=== PATIENT | male | born 2000 | race Caucasian/White ===

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

== ENCOUNTER → 2022-01-30 08:05 | Outpatient (POV) | payer BC, SELFPAY | PROVIDERS: Visit Provider Dermatology | DX: Z00.00 Encounter for general adult medical examination without abnormal findings (principal) ==

== ENCOUNTER 2022-09-30 22:13 | Emergency (ER) | payer BC, SELFPAY ==
[2022-09-30 22:15] VITALS: BP 168/83; PULSE 70; RESP 16; TEMP 36.5; O2SAT 100; BMI 22.2
--- NOTE | 2022-09-30 22:27 | CT_ITS ---
PROCEDURE INFORMATION: Exam: CT Maxillofacial Without Contrast Exam date and time: 09/30/2022 10:56 PM Age: 21 years old Clinical indication: Face pain; Additional info: Laceration TECHNIQUE: Imaging protocol: Computed tomography of the face without contrast. Radiation optimization: All CT scans at this facility use at least one of these dose optimization techniques: automated exposure control; mA and/or kV adjustment per patient size (includes targeted exams where dose is matched to clinical indication); or iterative reconstruction. REPORTING DATA: Count of CT and Cardiac NM exams in prior 12 months: This patient has received 0 known CTs and 0 known cardiac nuclear medicine studies in the 12 months prior to the current study. COMPARISON: No relevant prior studies available. FINDINGS: Orbital cavities: Orbits are normal. Globes are unremarkable. Bones/joints: Subtle deformity of the anterior inferior left nasal bone, mildly fragmented on axial image 32, possibly but not convincing of acute fracture. Paranasal sinuses: Benign mucous retention cyst in the paranasal sinuses. Mild mucosal thickening of the paranasal sinuses. Soft tissues: Left preorbital soft tissue contusion. Suspect laceration of the anterior soft tissue aspect of the nasal septum to the right of midline. IMPRESSION: 1. Left preorbital soft tissue contusion. 2. Suspect laceration of the anterior soft tissue aspect of the nasal septum to the right of midline. Recommend clinical correlation. 3. Subtle deformity of the anterior inferior left nasal bone, mildly fragmented on axial image 32, possibly but not convincing of acute fracture.
--- NOTE | 2022-09-30 22:49 | HMH.EDWNDL ---
Discharge Plan Disposition Patient Disposition: Home, Self-Care Chief Complaint: Wound/Laceration Prescriptions Prescriptions: No Action ondansetron HCl 4 MG tablet 4 mg PO TID Qty: 15 0RF Referrals Follow up/Referrals: Ilya Hayward MD [Primary Care Provider] - See instructions Clinical Impressions Clinical Impression: Blunt trauma of face, Closed fracture nasal bone, Facial laceration Instructions Patient Instructions: DI for Laceration Repair Discharge ED Provider: Damion (ED),Sy Jaime Wound/Laceration HPI General Chief Complaint: Wound/Laceration Stated Complaint: AO03/16@2130 fell lac to right eye and nose Time Seen by Provider: 09/30/22 22:30 Mode of Arrival: Ambulatory Source of Information: Patient, Parent(s) and Medical Record Limitations: No Limitations Description of Symptoms (Recalled from ER Triage Doc. by RN): Pt arrives to ED with a laceration above left eye and abrasion to nose after falling into a metal bernardo r/t being tripped by his dog per pt report. History of Present Illness HPI narrative: trip type injury and fall with facial trauma and 4 cm lt eyebrow lac - no loc and no other injury Onset (ago): hour(s) Location: face Place: home Patient tetanus UTD: No Context: fall Associated symptoms: none Related Data Previous Rx's Medication Instructions Recorded ondansetron HCl 4 mg tablet 4 mg PO TID nausea #15 tabs 01/11/21 Allergies Allergy/AdvReac Type Severity Reaction Status Date / Time No Known Allergies Allergy Verified 01/11/21 14:36 [facility] Disclaimer: The information contained in this section may have been updated after the patient was seen, as this information can be updated by other users. Social History Smoking Status: Never smoker alcohol intake: never current occupational status: other Travel in the last 8 weeks: None ROS Obtained: Yes All systems reviewed & no additional complaints except as documented Physical Exam General General appearance: alert Head Head exam: normocephalic Eye Eye exam: Present PERRL, EOMI, periorbital swelling and other (no hyphema ) ENT ENT exam: Present mucous membranes moist and other (tender lt nasal area w/o epistaxsis) Neck Neck exam: Present full ROM Respiratory Respiratory exam: Absent respiratory distress Cardiovascular Cardiovascular exam: Present regular rate Abdominal Exam Abdominal exam: Present soft Extremities Exam Extremities exam: Present full ROM Neurological Exam Neurological exam: Present alert, oriented X3, CN II-XII intact and other (gcs=15); Absent motor sensory deficit Psychiatric Psychiatric exam: Present normal affect Skin Skin exam: Present other (4 cm lac lt eyebrow ) Medical Decision Making Medical Records Medical records reviewed: Yes I reviewed the patient's medical records. Wili Inquiry Pt receiving controlled substance: No Vital Signs: 09/30/22 22:15 Temperature 97.7 F Temperature Source Oral Pulse Rate [Right] 70 Respiratory Rate 16 Blood Pressure [Right Arm] 168/83 H Blood Pressure Mean [Right Arm] 111 02 Sat by Pulse Oximetry 100 Oxygen Delivery Method Room Air Lab Data Lab results reviewed: Yes I reviewed the patient's lab results. Orders (Tests/Meds): ED MEDICATIONS Discontinued Medications Generic Name Dose Route Start Last Admin Trade Name Freq PRN Reason Stop Dose Admin Tetanus/Diphtheria Toxoids 0.5 ml 09/30/22 22:27 09/30/22 22:50 Tetanus-Diphth Toxoid, Adult 0.5ml Syr IM 09/30/22 22:28 0.5 ml .ONCE ONE Administration ORDERS Category Date Time Status CT facial bones wo con Stat Cat Scan 09/30/22 22:[address] Scan: Other (facial) Time Received: 00:[address] Reviewed: Yes I have viewed the radiologist's interpretation Preliminary Findings: Abnormal Findings Narrative: see report US Data ED US Reviewed: Yes I have viewed radiologist's interpretation Medical Decision Narrative: has facial
[2022-10-01 00:11] VITALS: BP 136/74; PULSE 67; RESP 16; TEMP 37; O2SAT 99
== END 2022-10-01 00:19 | disposition home or self-care (01) ==
PROVIDERS: Emergency Provider Emergency Medicine; PCP Family Medicine
DX: S02.2XXA Fracture of nasal bones, initial encounter for closed fracture (principal); W01.198A Fall on same level from slipping, tripping and stumbling with subsequent striking against other object, initial encounter; S01.112A Laceration without foreign body of left eyelid and periocular area, initial encounter; Z23 Encounter for immunization
CPT/HCPCS: 12052; 12032; 70486; 90471; 90714; 96372; 99283; 99284

== ENCOUNTER → 2023-06-18 14:19 | Outpatient (CLI) | payer BC, SELFPAY ==
[2023-06-18 15:34] LABS: Basophils % 0.4 % (0.1-2.0); Eosinophils # 0.2 K/mm3 (0.0-0.4); Eosinophils % 2.8 % (0.1-12.0); Hematocrit 42.5 % (42.0-52.0); Hemoglobin 14.9 g/dL (14.1-18.0); Lymphocytes # 1.7 K/mm3 (0.7-4.5); Lymphocytes % 25.9 % (10-50); Mean Corpuscular HGB Conc 35.2 g/dL (31.8-35.4); Mean Corpuscular Hemoglobin 31.9 pg (27.0-31.2); Mean Corpuscular Volume 90.8 fl (80-94); Mean Platelet Volume 7.2 fl (7.4-10.4); Monocytes # 0.5 K/mm3 (0.1-1.0); Monocytes % 6.8 % (1.7-9.3); Neutrophils # 4.3 K/mm3 (1.8-7.8); Neutrophils % 64.1 % (37.0-80.0); Platelet Count 313 K/mm3 (142-424); Red Blood Count 4.67 M/mm3 (4.60-6.20); White Blood Count 6.7 K/mm3 (4.5-13.0)
[2023-06-18 16:31] LABS: Alanine Aminotransferase 26 U/L (12-78); Albumin Level 4.5 g/dl (3.5-5.0); Albumin/Globulin Ratio 1.8 (1.1-1.8); Alkaline Phosphatase 34 U/L (38-126); Anion Gap 9.6 mEq/L (5-15); Aspartate Amino Transferase 32 U/L (17-59); Bilirubin,Total 0.4 mg/dl (0.2-1.3); Blood Urea Nitrogen 17 mg/dl (9-20); Carbon Dioxide 32 mmol/L (22.0-30.0); Chloride 100 mmol/L (98-107); Chol/HDL Ratio 2.5 (1-3.5); Cholesterol 193 mg/dl (140-200); Estimated Glomerular Filt Rate 95 ml/min (>60); GFR (African American) 115 ML/MIN (>60); Globulin 2.5 g/dL (1.3-3.2); Glucose 88 mg/dl (74-100); HDL Cholesterol 78 mg/dl (40-60); Potassium 5.6 mmoL/L (3.5-5.1); Sodium 136 mmol/L (136-145); Triglycerides 107 mg/dl (30-150); VLDL Cholesterol 21 mg/dL (0-40)
[2023-06-18 16:41] LABS: Direct LDL Cholesterol 101.06 mg/dL (100-129)
== END ==
PROVIDERS: Visit Provider Dermatology
DX: L70.9 Acne, unspecified (principal); Z79.899 Other long term (current) drug therapy
CPT/HCPCS: 36415; 80053; 80061; 85025

== ENCOUNTER → 2023-06-18 15:20 | Outpatient (POV) | payer BC, SELFPAY | PROVIDERS: Visit Provider Dermatology | DX: Z00.00 Encounter for general adult medical examination without abnormal findings (principal) ==

== ENCOUNTER 2023-07-23 10:25 | Outpatient (POV) | payer BC, SELFPAY | END 2023-07-23 23:59 | disposition home or self-care (01) | LOC: SC 10:25 | PROVIDERS: Visit Provider Dermatology | DX: Z00.00 Encounter for general adult medical examination without abnormal findings (principal) ==

== ENCOUNTER 2023-08-19 14:31 | Outpatient (CLI) | payer BC, SELFPAY ==
[2023-08-19 14:48] LABS: Basophils % 0.6 % (0.1-2.0); Eosinophils # 0.5 K/mm3 (0.0-0.4); Eosinophils % 6.9 % (0.1-12.0); Hematocrit 41.9 % (42.0-52.0); Hemoglobin 14.5 g/dL (14.1-18.0); Lymphocytes # 2.4 K/mm3 (0.7-4.5); Lymphocytes % 31.8 % (10-50); Mean Corpuscular HGB Conc 34.5 g/dL (31.8-35.4); Mean Corpuscular Hemoglobin 30.8 pg (27.0-31.2); Mean Corpuscular Volume 89.3 fl (80-94); Mean Platelet Volume 7.2 fl (7.4-10.4); Monocytes # 0.7 K/mm3 (0.1-1.0); Monocytes % 8.7 % (1.7-9.3); Neutrophils # 3.9 K/mm3 (1.8-7.8); Neutrophils % 52.1 % (37.0-80.0); Platelet Count 333 K/mm3 (142-424); Red Blood Count 4.69 M/mm3 (4.60-6.20); White Blood Count 7.5 K/mm3 (4.5-13.0)
[2023-08-19 15:39] LABS: Alanine Aminotransferase 22 U/L (12-78); Albumin Level 4.6 g/dl (3.5-5.0); Albumin/Globulin Ratio 1.8 (1.1-1.8); Alkaline Phosphatase 37 U/L (38-126); Anion Gap 10.7 mEq/L (5-15); Aspartate Amino Transferase 30 U/L (17-59); Bilirubin,Total 0.5 mg/dl (0.2-1.3); Blood Urea Nitrogen 13 mg/dl (9-20); Calcium 9.7 mg/dl (8.4-10.2); Carbon Dioxide 30 mmol/L (22.0-30.0); Chloride 102 mmol/L (98-107); Chol/HDL Ratio 3.3 (1-3.5); Cholesterol 217 mg/dl (140-200); Estimated Glomerular Filt Rate 123 ml/min (>60); GFR (African American) 149 ML/MIN (>60); Globulin 2.5 g/dL (1.3-3.2); Glucose 101 mg/dl (74-100); HDL Cholesterol 65 mg/dl (40-60); Potassium 4.7 mmoL/L (3.5-5.1); Sodium 138 mmol/L (136-145); Total Protein,Serum 7.1 g/dl (6.3-8.2); Triglycerides 60 mg/dl (30-150); VLDL Cholesterol 12 mg/dL (0-40)
[2023-08-19 15:50] LABS: Direct LDL Cholesterol 110.16 mg/dL (100-129)
== END 2023-08-19 23:59 ==
LOC: LAB 14:32
PROVIDERS: Visit Provider Dermatology
DX: L70.0 Acne vulgaris (principal); Z79.899 Other long term (current) drug therapy
CPT/HCPCS: 36415; 80053; 80061; 85025

== ENCOUNTER 2023-08-20 11:54 | Outpatient (POV) | payer BC, SELFPAY | END 2023-08-20 23:59 | disposition home or self-care (01) | LOC: SC 11:54 | PROVIDERS: PCP Dermatology; Visit Provider Dermatology | DX: Z00.00 Encounter for general adult medical examination without abnormal findings (principal) ==

== ENCOUNTER 2023-09-17 11:15 | Outpatient (POV) | payer BC, SELFPAY | END 2023-09-17 23:59 | disposition home or self-care (01) | LOC: SC 11:15 | PROVIDERS: Visit Provider Dermatology | DX: Z00.00 Encounter for general adult medical examination without abnormal findings (principal) ==

== ENCOUNTER 2023-11-12 11:05 | Outpatient (POV) | payer BC, SELFPAY | END 2023-11-12 23:59 | disposition home or self-care (01) | LOC: SC 11:06 | PROVIDERS: Visit Provider Dermatology | DX: Z00.00 Encounter for general adult medical examination without abnormal findings (principal) ==

== ENCOUNTER 2023-11-26 13:28 | Outpatient (POV) | payer BC, SELFPAY | END 2023-11-26 23:59 | disposition home or self-care (01) | LOC: SC 13:28 | PROVIDERS: PCP Dermatology; Visit Provider Dermatology | DX: Z00.00 Encounter for general adult medical examination without abnormal findings (principal) ==

== ENCOUNTER 2025-03-06 16:55 | Emergency (ER) | payer BC, SELFPAY ==
--- NOTE | 2025-03-06 16:59 | ED_ITS ---
<Statement entered by Lalit Pena MD - 03/06/25 17:57> I was consulted by the BORIS, and we discussed the complexity of the problems being addressed. I approve the treatment and management plan for this patient's care in the emergency department, thus performing a substantive portion of the medical decision making. Lalit Pena MD Discharge Plan Disposition Patient Disposition: Home, Self-Care Condition: Good Prescriptions Prescriptions: No Action ondansetron HCl 4 MG tablet 4 mg PO TID Qty: 15 0RF cephalexin [cephalexin] 500 mg capsule 500 mg PO TID Qty: 30 0RF Referrals Follow up/Referrals: Provider,Terrence, [Primary Care Provider, Medical] - See instructions Activity Restrictions/Add. Instructions Additional Instructions/Restrictions: Please follow-up with the eye doctor in the upcoming days/weeks, please return to the emergency department with any worsening signs or symptoms, please utilize your ointment as prescribed. How to Apply Eye Ointment? * Wash your hands thoroughly.? * Prepare the ointment:? * Shake the tube well.? * Remove the cap.? * Tilt your head back and look up.? * Gently pull down your lower eyelid to create a pouch.? * Squeeze a small amount of ointment (about the size of a grain of rice) into the pouch.? * Close your eye and roll it around to spread the ointment.? * Release your eyelid and gently wipe away any excess ointment with a tissue.? Additional Tips:? * Do not touch the tip of the tube to your eye or eyelid.? * If you are applying ointment to a child, have them lie down and tilt their head back.? * Apply the ointment at bedtime, as it can cause temporary blurred vision.? * Store the ointment at room temperature, away from direct sunlight and moisture.? Clinical Impressions Clinical Impression: Abrasion of cornea, right Instructions Patient Instructions: DI for Corneal Abrasion Print Language Print Language: Samoan Discharge ED Provider: Lalit Pena General Adult HPI General Chief complaint: Eye Problems Stated complaint: AO 8-29 right eye pain Time Seen by Provider: 03/06/25 16:59 Mode of Arrival: Ambulatory Source of Information: Patient and Parent(s) Limitations: No Limitations History of Present Illness HPI narrative: 24-year-old male presents to the emergency department accompanied by his mother for some right eye irritation, patient states he was working on a deck , sawing some wood , yesterday wearing eye protection, did believe he had a foreign body/ piece of wood , in his right eye, he denies any visual disturbance such as blurry vision flashes floaters no curtain over the vision, no decreased visual acuity, denies any fever chills chest pain shortness of breath nausea vomiting abdominal pain constipation diarrhea no urinary type symptomatology, patient has no other real relevant past medical history takes no other medications at home, describes it as more of an irritation not as a pain . Patient is current everyday smoker, (vapes), denies any alcohol or drug use. Initial triage vitals are grossly unremarkable. Patient has not yet tried anything for the symptomatology. Of note, patient does not wear glasses or contacts at baseline. Please note that above description of symptoms, in this electronic medical record under categorization of recalled from ER triage doctor by RN are reflective of an initial nursing assessment, however, is not reflective of my full history and physical exam that was personally taken and clarified. Co nsequentially, this preceding description of symptoms, which may include the patient's categorized chief complaint in the EMR, do not reflect my personal clinical impression, and the ultimate description of history of present illness and patient stated complaints should be deferred to this section of the note. Unless stated otherwise or congruent with this section of the note, additional signs, symptoms, or incongruence should be interpreted as inaccurate with my clinical impression. Onset (ago): hour(s) Related Data Previous Rx's ?Medication ?Instructions ?Recorded ondansetron HCl 4 mg tablet 4 mg PO TID nausea #15 tab s 01/11/21 cephalexin 500 mg capsule 500 mg PO TID #30 caps 10/01 Allergies Allergy/AdvReac Type Severity Reaction Status Date / Time No Known Allergies Allergy Verified 01/11/21 14:36 [facility] Disclaimer: The information contained in this section may have been updated after the patient was seen, as this information can be updated by other users. Social History Smoking Status: Current every day smoker alcohol intake: never current occupational status: other Travel in the last 8 weeks?: None Have you lived/traveled outside US in past 30 days?: No Contact w/someone who lives/traveled outside US past 30 days?: No Exposure to someone with infectious disease in past 14 days?: No Do you have a fever (greater than 100.4 F or 38 C)?: No Have you tested positive for COVID-19?: No Exposed to someone with COVID-19 in past 14 days?: No Do you have a sore throat?: No Do you have a cough?: No Do you have any weakness?: No Do you have any diarrhea?: No Are you experiencing any unusual bleeding?: No Do you have any muscle aches/pain?: No Do you have any abdominal pain?: No Are you experiencing loss of taste or smell?: No Other Medical History Have you received the Flu Vaccine for this season: No Have you received the Pneumonia Vaccine: No ROS Obtained: Yes All systems reviewed & no additional complaints except as documented Physical Exam General General appearance: alert and in no apparent distress Head Head exam: atraumatic and normocephalic Eye Eye exam: Present PERRL, EOMI and conjunctival injection; Absent conjunctival redness ENT ENT exam: Present mucous membranes moist Neck Neck exam: Present normal inspection Chest Chest inspection: Present normal inspection and symmetric chest wall rise Respiratory Respiratory exam: Present normal lung sounds bilaterally; Absent respiratory distress Cardiovascular Cardiovascular exam: Present regular rate and normal rhythm Abdominal Exam Abdominal exam: Present soft; Absent tenderness, guarding, rebound or rigidity Extremities Exam Extremities exam: Present normal inspection Neurological Exam Neurological exam: Present alert and oriented X3 Psychiatric Psychiatric exam: Present normal affect Skin Skin exam: Present warm and dry Medical Decision Making Medical Records Medical records reviewed: Yes I reviewed the patient's medical records. Screening: Per USPSTF and CDC recommendations, given the prevalence of disease in our region, it is our hospital?s policy to screen for HIV and viral Hepatitis for all patients aged 18 and over and those with ongoing risk factors. Wili Inquiry Pt receiving controlled substance: No Wili was queried for this patient: No Vital Signs: 03/06/25 17:02 Temperature 98.1 F Temperature Source Oral Pulse Rate [Right] 56 L Respiratory Rate 15 Blood Pressure [Right Arm] 163/100 H Blood Pressure Mean [Right Arm] 121 02 Sat by Pulse Oximetry 99 Oxygen Delivery Method Room Air Medical Decision Narrative: 24-year-old male presents the emergency department with right eye irritation after cutting wood yesterday, differential diagnosis include but not limited to, traumatic iritis, corneal abrasion, corneal ulcer, ocular foreign body among others. I discussed this patient's case with the attending physician Dr. Booker Will utilize tetracaine, as well as fluorescein dye test and [place] lamp examination of the patient's right eye, utilizing 2 drops of tetracaine, and 1 fluorescein dye test, there is a very minimal corneal dye uptake around the 1030/11 AM region of the patient's eye, would be consistent with corneal abrasion, I do not appreciate any ocular foreign body, negative Sidel sign, patient tolerated well. Will prescribe the patient Erythromycin ointment 4 times daily for 5 days or until ophthalmology/optometry follow-up. Staff perform visual acuity, patient's visual acuity is within his baseline/previous visual acuity a test according to patient him at the bedside. Patient also denies any visual disturbance or decreased visual acuity. Patient was given strict ED return precautions follow-up with ophthalmology/optometry. Patient and family voiced understanding and agreement with the current treatment plan/discharge plan. Critical Care Critical Care Time Critical Care Time: No
[2025-03-06 17:02] VITALS: BP 163/100; PULSE 56; RESP 15; TEMP 36.7; O2SAT 99; BMI 23.6
--- NOTE | 2025-03-06 17:18 | PC.NURSE ---
Visual acuity: R: 20/15 L: 20/13 Both: 20/13
[2025-03-06] MEDS: TETRACAINE 0.5% OPTH SOL 15ML OP (17:30)
[2025-03-06] MEDS: ERYTHROMYCIN BASE 1 GM OINT...G. 0.5 GM OP (17:30)
[2025-03-06] MEDS: FLUORESCEIN SODIUM 1MG STRIP 1 MG OP (17:30)
[2025-03-06 17:31] VITALS: BP 141/103; PULSE 81; RESP 18; TEMP 36.9; O2SAT 97
== END 2025-03-06 17:35 | disposition home or self-care (01) ==
PROVIDERS: Emergency Provider Student in an Organized Health Care Education/Training Program
DX: S05.01XA Injury of conjunctiva and corneal abrasion without foreign body, right eye, initial encounter (principal); F17.210 Nicotine dependence, cigarettes, uncomplicated
CPT/HCPCS: 99282

== ENCOUNTER 2025-04-05 08:34 | Emergency (ER) | payer BC, SELFPAY ==
[2025-04-05 08:42] VITALS: BP 159/98; PULSE 114; RESP 20; TEMP 36.9; O2SAT 99; BMI 23.6
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
[2025-04-05 09:00] VITALS: BP 164/101; PULSE 91; O2SAT 100
[2025-04-05 09:05] LABS: Hematocrit 42.6 % (42.0-52.0); Hemoglobin 14.3 g/dL (14.1-18.0); Immature Granulocytes % 0.4 %; Mean Corpuscular HGB Conc 33.6 g/dL (31.8-35.4); Mean Corpuscular Hemoglobin 31.3 pg (27.0-31.2); Mean Corpuscular Volume 93.2 fl (80-94); Nucleated Red Blood Cells % 0 %; Platelet Count 345 K/mm3 (142-424); Red Blood Count 4.57 M/mm3 (4.60-6.20); Red Cell Distribution Width-SD 42.5 fL; White Blood Count 16.2 K/mm3 (4.8-10.8)
[2025-04-05] MEDS: ACETAMINOPHEN 500MG TAB 1000 MG PO (09:06)
[2025-04-05 09:17] LABS: INR 1.01 (0.9-1.1); Prothrombin Time 11.2 seconds (10.1-12.5)
[2025-04-05 09:18] LABS: Albumin Level 4.8 g/dl (3.5-5.0); Chloride 98 mmol/L (98-107); Potassium 4.7 mmoL/L (3.5-5.1); Sodium 137 mmol/L (136-145)
[2025-04-05 09:21] LABS: Alanine Aminotransferase 34 U/L (12-78); Albumin/Globulin Ratio 1.7 (1.1-1.8); Alkaline Phosphatase 44 U/L (38-126); Anion Gap 11.7 mEq/L (5-15); Aspartate Amino Transferase 47 U/L (17-59); Bilirubin,Total 1.5 mg/dl (0.2-1.3); Blood Urea Nitrogen 11 mg/dl (9-20); Carbon Dioxide 32 mmol/L (22.0-30.0); Creatinine Clearance Estimated 198 mL/min (50-200); Creatinine,Serum 0.60 mg/dl (0.66-1.25); Estimated Glomerular Filt Rate 168 ml/min (>60); GFR (African American) 204 ML/MIN (>60); Globulin 2.9 g/dL (1.3-3.2); Total Protein,Serum 7.7 g/dl (6.3-8.2)
[2025-04-05 09:22] LABS: Calcium 9.6 mg/dl (8.4-10.2); Glucose 116 mg/dl (74-100); Lipase 21 U/L (23-300)
[2025-04-05] MEDS: 0.9 % SODIUM CHLORIDE 50 ML VIAL 100 ML IV (09:30)
[2025-04-05] MEDS: IOPAMIDOL-370 (76%);100ML BOTTLE 140 ML IV (09:30)
[2025-04-05] MEDS: SODIUM CHLORIDE 0.9% 10ML SYR (RAD ONLY) 10 ML IV (09:30)
[2025-04-05 11:25] VITALS: BP 150/80; PULSE 80; RESP 20; TEMP 36.8; O2SAT 98
== END 2025-04-05 11:26 | disposition left against medical advice (07) ==
PROVIDERS: Emergency Provider Student in an Organized Health Care Education/Training Program; PCP Family Medicine
DX: J94.2 Hemothorax (principal); S42.021A Displaced fracture of shaft of right clavicle, initial encounter for closed fracture; R55 Syncope and collapse; V86.59XA Driver of other special all-terrain or other off-road motor vehicle injured in nontraffic accident, initial encounter
CPT/HCPCS: 70498; 71275; 72125; 80053; 83605; 83690; 85025; 85610; 99283; 99285; Q9967

== ENCOUNTER 2025-04-12 09:07 | Outpatient (CLI) | payer BC, SELFPAY ==
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
== END 2025-04-12 23:59 | disposition home or self-care (01) ==
PROVIDERS: PCP Family Medicine; Visit Provider Physician Assistant
DX: S42.031D Displaced fracture of lateral end of right clavicle, subsequent encounter for fracture with routine healing (principal); V86.99XD Unspecified occupant of other special all-terrain or other off-road motor vehicle injured in nontraffic accident, subsequent encounter
CPT/HCPCS: 73000

== ENCOUNTER 2025-04-16 10:48 | Outpatient (CLI) | payer BC, SELFPAY ==
[2025-04-16 08:03] VITALS: BMI 23.3
[2025-04-16 11:33] LABS: Hematocrit 42.9 % (42.0-52.0); Hemoglobin 14.4 g/dL (14.1-18.0); Immature Granulocytes % 0.4 %; Mean Corpuscular HGB Conc 33.6 g/dL (31.8-35.4); Mean Corpuscular Hemoglobin 31.9 pg (27.0-31.2); Mean Corpuscular Volume 94.9 fl (80-94); Nucleated Red Blood Cells % 0 %; Platelet Count 340 K/mm3 (142-424); Red Blood Count 4.52 M/mm3 (4.60-6.20); Red Cell Distribution Width-SD 43.3 fL; White Blood Count 9.1 K/mm3 (4.8-10.8)
[2025-04-16 11:34] LABS: Anion Gap 10.9 mEq/L (5-15); Blood Urea Nitrogen 11 mg/dl (9-20); Calcium 9.4 mg/dl (8.4-10.2); Carbon Dioxide 31 mmol/L (22.0-30.0); Chloride 99 mmol/L (98-107); Creatinine Clearance Estimated 168 mL/min (50-200); Creatinine,Serum 0.70 mg/dl (0.66-1.25); Estimated Glomerular Filt Rate 141 ml/min (>60); GFR (African American) 171 ML/MIN (>60); Glucose 112 mg/dl (74-100); Potassium 3.9 mmoL/L (3.5-5.1); Sodium 137 mmol/L (136-145)
== END 2025-04-16 23:59 | disposition home or self-care (01) ==
LOC: PREOP 10:49
PROVIDERS: PCP Family Medicine; Visit Provider Orthopaedic Surgery
DX: Z01.812 Encounter for preprocedural laboratory examination (principal)
CPT/HCPCS: 80048; 85025

== ENCOUNTER 2025-04-20 09:25 | Day surgery (SDC) | payer BC, SELFPAY ==
[2025-04-16 12:01] VITALS: BMI 23.3
[2025-04-20] VITALS (10 sets, daily range): BP systolic 132–160; BP diastolic 65–91; PULSE 62–88; RESP 16–18; TEMP 36.2–43; O2SAT 93–100
[2025-04-20] MEDS: LACTATED RINGERS 1000ML 1,000 ML 100 ML IV (10:28)
--- NOTE | 2025-04-20 16:32 | XR_ITS ---
PROCEDURE INFORMATION: Exam: XR Right Clavicle, Complete Exam date and time: 04/20/2025 4:30 PM Age: 24 years old Clinical indication: Device placement; Joint fixation hardware; Additional info: Orif right clavicle TECHNIQUE: Imaging protocol: Radiologic exam of the right clavicle. Complete exam. Views: Any number of views. COMPARISON: CR XR CLAVICLE RT 04/12/2025 9:14 AM FINDINGS: Bones/joints: Two intraoperative views demonstrating screw fixation fracture clavicle. Soft tissues: Normal. IMPRESSION: Intraoperative views.
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
--- NOTE | 2025-04-20 17:01 | EXP.ANES.I ---
[facility] Anesthesia Record Part I Anesthesia Record I Intake, IV Amount: 1,300 Hydration: Adequate Estimated blood loss (mL): 100 Urine output (mL): 0 Blood Products used (#): none Blood Pressure: 146/82 SaO2: 93 Pulse Rate: 75 Airway Patency: Patent Respiratory Rate: 16 Temperature: 98.1 F Patient is:: Drowsy and Stable Stable to PACU at:: 16:55
--- NOTE | 2025-04-20 17:02 | EXP.ANES.CKL ---
[facility] Disclaimer: The information contained in this section may have been updated after the patient was seen, as this information can be updated by other users. Medical History No significant past medical history Surgical History History of tonsillectomy and adenoidectomy Family History Other No significant family history Social History Smoking Status: Current every day smoker tobacco type: e-cigarettes alcohol intake: never substance use type: denies use current occupational status: employed Travel in the last 8 weeks?: None Have you lived/traveled outside US in past 30 days?: No Contact w/someone who lives/traveled outside US past 30 days?: No Exposure to someone with infectious disease in past 14 days?: No Do you have a fever (greater than 100.4 F or 38 C)?: No Have you tested positive for COVID-19?: No Exposed to someone with COVID-19 in past 14 days?: No Do you have a sore throat?: No Do you have a cough?: No Do you have any weakness?: No Do you have any diarrhea?: No Are you experiencing any unusual bleeding?: No Do you have any muscle aches/pain?: No Do you have any abdominal pain?: No Are you experiencing loss of taste or smell?: No [facility] Anesthesia Checklist Patient Identification Patient Identification: Arm Band and Family Structural Data Admitted From: Home Planned Operative Procedure/s: ORIF Right Midshaft Clavicle Consent for Planned Operative Procedure(s) Verified: Yes Verified Documents: Surgical Consent and History and Physical NPO Status Verified Time NPO: 00:00 Additional verifications Anesthesia Reactions: No Hx Blood Transfusions: No Blood Transfusion Reaction: No Airway Assessment Mallampati Score:: Class II C-Spine Mobility Assessed: Yes TMJ Mobility Assessed: Yes Dentition: Good Dentition Neurological Assessment Level of Consciousness: Awake, Alert and Appropriate Anesthesia Plan Anesthesia Risk discussed: Yes Anesthesia Plan: Verified ASA Class: II Anesthesia Type: General w/block (Right Interscalene/Cervical Plexus Nerve Block. Risk/benefits explained. Pt verbalized understanding)
--- NOTE | 2025-04-21 06:16 | P.PNANES_ITS ---
[facility] Anesthesia Record Part II Anesthesia Record Part II Discharge Time: 17:25 Destination: Surgical Day Care (OP Surgery) PACU nurse assessment reviewed?: Yes Patient Condition:: Good Anesthesia Complications:: None Swallowing reflex intact?: Yes Airway Patency: Patent Cyanosis?: No Blood Pressure: 133/65 SaO2: 95 Respiratory Rate: 17 Pulse Rate: 86 Temperature: 98.1 F Mental Status: Alert & Oriented Pain level:: 0 Nausea and/or vomitting:: None Intake, IV Amount: 0 Hydration: Adequate
[2025-04-21 06:17] VITALS: BP 133/65; PULSE 86; RESP 17; TEMP 36.7; O2SAT 95
== END 2025-04-20 18:02 | disposition home or self-care (01) ==
PROVIDERS: PCP Family Medicine; Visit Provider Orthopaedic Surgery
PROC: (CPT 23515; principal; 2025-04-20 10:45)
DX: S42.021A Displaced fracture of shaft of right clavicle, initial encounter for closed fracture (principal); V86.95XA Unspecified occupant of 3- or 4- wheeled all-terrain vehicle (ATV) injured in nontraffic accident, initial encounter; F17.290 Nicotine dependence, other tobacco product, uncomplicated
CPT/HCPCS: 23515; 64415; 64999; 73000; 76000; 96374; C1713; J0690; J1100; J1885; J2003; J2250; J2405; J2704; J3010; J7120

== ENCOUNTER 2025-04-29 13:10 | Outpatient (CLI) | payer BC, SELFPAY ==
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
== END 2025-04-29 23:59 ==
LOC: RAD 13:11
PROVIDERS: PCP Family Medicine; Visit Provider Physician Assistant
DX: S42.001D Fracture of unspecified part of right clavicle, subsequent encounter for fracture with routine healing (principal); V86.65XD Passenger of 3- or 4- wheeled all-terrain vehicle (ATV) injured in nontraffic accident, subsequent encounter
CPT/HCPCS: 73000

== ENCOUNTER 2025-05-20 09:03 | Outpatient (CLI) | payer BC, SELFPAY ==
--- NOTE | 2025-05-20 09:05 | XR_ITS ---
FINAL REPORT CLINICAL HISTORY: right clavicle fx COMPARISON: 04/29/2025 FINDINGS: RIGHT CLAVICLE 2 views of the right clavicle were obtained. There is increasing callus formation surrounding the nondisplaced fracture of the mid clavicle. 2 fixation screws are noted within the clavicle. The joint spaces are intact. There is no soft tissue abnormality. IMPRESSION: Increasing callus formation surrounding the nondisplaced fracture of the mid clavicle when compared to the prior exam of 04/29/2025 Reviewed, Interpreted and Dictated by MD Mulligan Richard Transcribed by Ana Dominguez Authenticated and [facility]
== END 2025-05-20 23:59 | disposition home or self-care (01) ==
LOC: RAD 09:03
PROVIDERS: PCP Family Medicine; Visit Provider Orthopaedic Surgery
DX: S42.017D Nondisplaced fracture of sternal end of right clavicle, subsequent encounter for fracture with routine healing; X58.XXXD Exposure to other specified factors, subsequent encounter
CPT/HCPCS: 73000

== ENCOUNTER 2025-06-17 08:44 | Outpatient (CLI) | payer BC, SELFPAY ==
--- NOTE | 2025-06-17 08:46 | XR_ITS ---
FINAL REPORT CLINICAL HISTORY: right clavicle fx COMPARISON: 04/19/2025 FINDINGS: RIGHT CLAVICLE Two views were obtained. There are 2 orthopedic screws securing the mid clavicle. There is overlying periosteal reaction. There is progressive callus formation at the fracture site when compared to previous. The AC joint is intact. IMPRESSION: Postsurgical changes as above. Reviewed, Interpreted and Dictated by Kriill Rabago MD Transcribed by Shannon Garcia Authenticated and [facility]
== END 2025-06-17 23:59 | disposition home or self-care (01) ==
LOC: RAD 08:45
PROVIDERS: PCP Family Medicine; Visit Provider Orthopaedic Surgery
DX: S42.001A Fracture of unspecified part of right clavicle, initial encounter for closed fracture (principal); Z98.890 Other specified postprocedural states
CPT/HCPCS: 73000